=== PATIENT | female | born 1980 | race American Indian/Alaskan Native ===

== ENCOUNTER 2018-04-28 02:59 | Inpatient (IN) | payer SELFPAY ==
[2018-04-28] MEDS ORDERED: ASPIRIN PO ONE (03:28)
[2018-04-28 03:56] LABS: Basophils # (Auto) 0.1 K/mm3 (0.0-0.1); Basophils % (Auto) 1.2 % (0.0-1.8); Eosinophils # (Auto) 0.1 K/mm3 (0.0-0.4); Eosinophils % (Auto) 0.9 % (0.0-4.3); Hematocrit 39.6 % (30.3-42.9); Hemoglobin 13.7 gm/dl (10.1-14.3); Lymphocytes # (Auto) 2.9 K/mm3 (1.2-5.4); Lymphocytes % (Auto) 31.6 % (13.4-35.0); Mean Corpuscular HGB Conc 35 % (30-34); Mean Corpuscular Volume 91 fl (79-97); Monocytes # (Auto) 0.5 K/mm3 (0.0-0.8); Monocytes % (Auto) 5.2 % (0.0-7.3); Platelet Count 310 K/mm3 (140-440); Red Blood Count 4.36 M/mm3 (3.65-5.03); Red Cell Distribution Width 12.9 % (13.2-15.2)
[2018-04-28 04:42] LABS: BUN/Creatinine Ratio 8; Blood Urea Nitrogen 6 mg/dL (7-17); Calcium 9.6 mg/dL (8.4-10.2); Hemolysis Index 15
[2018-04-28] MEDS ORDERED: NITRO-BID 2% TP ONE ×2 (04:59→05:04)
[2018-04-28] MEDS ORDERED: SUBLIMAZE IV ONE (04:59)
[2018-04-28] MEDS ORDERED: ZOFRAN IV ONE (04:59)
--- NOTE | 2018-04-28 05:01 | Emergency Department Report ---
HPI - General Chief Complaint: Chest Pain Time Seen by Provider: 04/28/18 04:51 - HPI HPI: Room 2 The patient is a 37-year-old female presenting with a chief complaint of chest pain. The patient states she was at work standing at 22:30 was developed sub sternal chest heaviness radiating to the left upper extremity. Patient states she developed shortness of breath and nausea without vomiting. She states she began to feel clammy. Patient states the pain has been intermittent. The patient states she was administered nitroglycerin by EMS and her chest pain improved. The patient states she's never had a stress test or cardiac catheterization Location: Chest, see above Duration: Intermittent since 22:30 Quality: Heaviness Severity: Moderate Modifying factors: [see above] Context: [see above] Mode of transportation: [not driving] ED Past Medical Hx - Past Medical History Previous Medical History?: No - Surgical History Past Surgical History?: No - Family History Family history: no significant - Social History Smoking Status: Never Smoker Substance Use Type: None (denies illicit drug use), Alcohol (occasional) ED Review of Systems ROS: Stated complaint: CHEST PAIN Other details as noted in HPI Constitutional: diaphoresis Eyes: denies: eye pain ENT: denies: throat pain Respiratory: shortness of breath Cardiovascular: chest pain Endocrine: no symptoms reported Gastrointestinal: nausea. denies: vomiting Genitourinary: denies: dysuria Musculoskeletal: denies: back pain Neurological: headache (after nitroglycerin) Physical Exam - Physical Exam Vital Signs: Vital Signs 04/28/18 03:20 Temperature 98.4 F Pulse Rate 74 Respiratory 18 Rate Blood Pressure 136/76 O2 Sat by Pulse 98 Oximetry Physical Exam: GENERAL: The patient is well-developed well-nourished female sitting on stretcher not appearing to be in acute distress. [] HEENT: Normocephalic. Atraumatic. Extraocular motions are intact. Patient has moist mucous membranes. NECK: Supple. Trachea midline CHEST/LUNGS: Clear to auscultation. There is no respiratory distress noted. HEART/CARDIOVASCULAR: Regular. There is no tachycardia. There is no gallop rub or murmur. ABDOMEN: Abdomen is soft, nontender. Patient has normal bowel sounds. There is no abdominal distention. SKIN: There is no rash. There is no edema. There is no diaphoresis. NEURO: The patient is awake, alert, and oriented. The patient is cooperative. The patient has normal speech MUSCULOSKELETAL: There is no evidence of acute injury. ED Course Vital Signs 04/28/18 03:20 Temperature 98.4 F Pulse Rate 74 Respiratory 18 Rate Blood Pressure 136/76 O2 Sat by Pulse 98 Oximetry ED Medical Decision Making - Lab Data Result diagrams: 04/28/18 03:30 04/28/18 03:30 Laboratory Tests 04/28/18 04/28/18 03:30 03:30 WBC 9.2 RBC 4.36 Hgb 13.7 Hct 39.6 MCV 91 MCH 31 MCHC 35 H RDW 12.9 L Plt Count 310 Lymph % (Auto) 31.6 Dillon % (Auto) 5.2 Eos % (Auto) 0.9 Baso % (Auto) 1.2 Lymph # 2.9 Dillon # 0.5 Eos # 0.1 Baso # 0.1 Seg Neutrophils % 61.1 Seg Neutrophils # 5.6 Sodium 146 H Potassium 4.0 Chloride 107.3 H Carbon Dioxide 23 Anion Gap 20 BUN 6 L Creatinine 0.8 Estimated GFR > 60 BUN/Creatinine Ratio 8 Glucose 104 H Calcium 9.6 Troponin T < 0.010 - EKG Data -: EKG Interpreted by Me EKG shows normal: sinus rhythm Rate: normal - EKG Data When compared to previous EKG there are: previous EKG unavailable Interpretation: other (no ischemic changes seen) - Radiology Data Radiology results: image reviewed (chest x-ray) interpreted by me: Chest x-ray-no focal infiltrate, no pneumothorax - Differential Diagnosis ACS, pericarditis, GERD Critical care attestation.: If time is entered above; I have spent that time in minutes in the direct care of this critically ill patient, excluding procedure time. ED Disposition Clinical Impression: Chest pain Disposition: DC-01 TO HOME OR SELFCARE Is pt being admited?: Yes Does the pt Need Aspirin: Yes Condition: Fair Instructions: Chest Pain (ED) Time of Disposition: 05:11 (hospitalist paged (Dr. Dara Carrion))
[2018-04-28] MEDS ORDERED: ZOFRAN ONE (05:04)
[2018-04-28] MEDS ORDERED: SUBLIMAZE ONE (05:04)
--- NOTE | 2018-04-28 05:17 | XRay Report ---
FINAL REPORT PROCEDURE: XR CHEST 1V AP TECHNIQUE: Chest radiograph anteroposterior view. CPT 25976 HISTORY: chest pain COMPARISON: No prior studies are available for comparison. FINDINGS: Heart: Normal. Mediastinum/Vessels: Normal. Lungs/Pleural space: Normal. Bony thorax: No acute osseous abnormality. Life support devices: None. IMPRESSION: No acute cardiopulmonary abnormality.
[2018-04-28] MEDS ORDERED: TYLENOL PO PRN (05:29)
[2018-04-28] MEDS ORDERED: MORPHINE IV PRN (05:29)
[2018-04-28] MEDS ORDERED: SODIUM CHLORIDE FLUSH SYRINGE 10 ML IV PRN (05:29)
[2018-04-28] MEDS ORDERED: ZOFRAN IV PRN (05:29)
[2018-04-28] MEDS ORDERED: APRESOLINE IV PRN (05:29)
--- NOTE | 2018-04-28 05:35 | History and Physical Report ---
History of Present Illness Date of examination: 04/28/18 History of present illness: 37-year-old woman with no medical problems comes emergency room with complaints of chest pain that started while she was at work. Pain is in the left substernal area which she describes as sharp, someone sitting on her chest, constant, intensity 7/10, radiating to the left arm, relieved with nitroglycerin. Admits to nausea, shortness of breath, palpitation and feeling clammy. She seen a physician in February and her blood pressure was elevated at that time, she is not on any antihypertensive Review of systems Constitutional: no weight loss, chills, fever Ears, eyes, nose, mouth and throat: no nasal congestion, no nasal discharge, no sinus pressure, no vision change, no red eye. Neck: No neck pain or rigidity. Cardiovascular: +palpitations Respiratory: no cough, +shortness of breath Gastrointestinal: no hematochezia, abdominal pain Genitourinary : no frequency , no hematuria Musculoskeletal: no joint swelling or muscle ache Integumentary: no rash, no pruritis Neurological: no parathesias, no focal weakness Endocrine: no cold or heat intolerance, no polyuria or polydipsia Hematologic/Lymphatic: no easy bruising, no easy bleeding, no gland swelling Allergic/Immunologic: no urticaria, no angioedema. PAST MEDICAL HISTORY: None PAST SURGICAL HISTORY: None SOCIAL HISTORY: Denies alcohol, drugs, tobacco FAMILY HISTORY: Hypertension Medications and Allergies Allergies Allergy/AdvReac Type Severity Reaction Status Date / Time No Known Allergies Allergy Verified 04/28/18 03:28 Exam - Physical Exam Narrative exam: General Apperance: The patient lying in bed, breathing comfortable HEENT: Normocephalic, atraumatic. Pupils equally round and reactive to light, EOMI, no sclericterus or JVD or thyromegaly or nodule. , no carotid bruit, mucous membranes moist, no exudate or erythema Heart: S1-S2, regular is rhythm Lungs: Clear to auscultation bilaterally, breathing comfortable Abdomen: Positive bowel sounds, soft, nontender, nondistended, no organomegaly Extremities: No edema cyanosis clubbing Skin: no rash, nodule, warm and dry Neuro: cranial nerves 2-12 intact, speech is fluent, motor/sensory intact - Constitutional Vitals: Temp Pulse Resp BP Pulse Ox 98.4 F 64 13 144/80 98 04/28/18 03:20 04/28/18 05:15 04/28/18 05:15 04/28/18 05:15 04/28/18 03:20 Results - Labs CBC & Chem 7: 04/28/18 03:30 04/28/18 03:30 Labs: Abnormal lab results 04/28/18 04/28/18 Range/Units 03:30 03:30 MCHC 35 H (30-34) % RDW 12.9 L (13.2-15.2) % Sodium 146 H (137-145) mmol/L Chloride 107.3 H (98-107) mmol/L BUN 6 L (7-17) mg/dL Glucose 104 H (65-100) mg/dL - Imaging and Cardiology EKG: image reviewed Chest x-ray: report reviewed Assessment and Plan Assessment Chest pain, rule out ACS Elevated blood pressure Hypernatremia Plan Admit to medicine Check cardiac enzymes, obtain a stress test IV hydralazine and the blood pressure control Start aspirin, IV morphine, IV fluid DVT prophylaxis
[2018-04-28] MEDS ORDERED: NACL 0.45% 1000 ML 1,000 ML IV SCH (06:00)
[2018-04-28 06:17] LABS: Creatine Kinase MB 2.2 ng/mL (0.0-4.0)
[2018-04-28] MEDS ORDERED: ASPIRIN PO SCH (10:00)
[2018-04-28] MEDS ORDERED: SODIUM CHLORIDE FLUSH SYRINGE 10 ML IV SCH (10:00)
[2018-04-28] MEDS ORDERED: LOVENOX SUB-Q SCH ×2 (10:00)
--- NOTE | 2018-04-28 10:28 | Discharge Summary ---
Providers - Providers Date of Admission: 04/28/18 05:30 Date of discharge: 04/28/18 Attending physician: TAINA MARION Primary care physician: YUNI WOLFF Hospitalization Reason for admission: cp Condition: Fair Hospital course: 37-year-old woman with no medical problems comes emergency room with complaints of chest pain that started while she was at work. Pain was in the left substernal area which she described as sharp, someone sitting on her chest, constant, intensity 7/10, radiating to the left arm, relieved with nitroglycerin. Admitted to nausea, shortness of breath, palpitation and feeling clammy. She saw a physician in February and her blood pressure was elevated at that time, she is not on any antihypertensive. The patient was admitted with diagnosis of chest pain. Blood pressure was normotensive during hospitalization. The patient underwent stress thallium and found to be negative will be discharged home. EKG and cardiac isoenzymes were found to be within normal limits. Dedicated discharge time 35 minutes. Disposition: TO HOME OR SELFCARE Time spent for discharge: 35 - Discharge Diagnoses (1) Chest pain Status: Acute Core Measure Documentation - Palliative Care Palliative Care/ Comfort Measures: Not Applicable - Core Measures Any of the following diagnoses?: none Exam - Constitutional Vitals: Temp Pulse Resp BP Pulse Ox 98.4 F 80 18 129/76 96 04/28/18 03:20 04/28/18 07:46 04/28/18 08:21 04/28/18 08:18 04/28/18 07:41 General appearance: Present: no acute distress, well-nourished - EENT Eyes: Present: PERRL ENT: hearing intact, clear oral mucosa - Neck Neck: Present: supple, normal ROM - Respiratory Respiratory effort: normal Respiratory: bilateral: CTA - Cardiovascular Heart Sounds: Present: S1 & S2. Absent: rub, click - Extremities Extremities: pulses symmetrical, No edema Peripheral Pulses: within normal limits - Abdominal General gastrointestinal: Present: soft, non-tender, non-distended, normal bowel sounds Female genitourinary: Present: normal - Integumentary Integumentary: Present: clear, warm, dry - Musculoskeletal Musculoskeletal: gait normal, strength equal bilaterally - Psychiatric Psychiatric: appropriate mood/affect, intact judgment & insight - Neurologic Neurologic: CNII-XII intact, moves all extremities Plan Activity: no restrictions Weight Bearing Status: Full Weight Bearing Diet: regular Follow up with: YUNI WOLFF MD [Primary Care Provider] - 7 Days Prescriptions: Gabapentin [Neurontin] 800 mg PO BID #60 tablet Pantoprazole [Protonix] 40 mg PO QDAY #30 tablet
[2018-04-28] MEDS ORDERED: AFLURIA QUAD 2018-2019 SYRINGE IM ONE (12:00)
[2018-04-28 12:16] VITALS: BP 118/56
== END 2018-04-28 14:07 | disposition home or self-care (01) | DRG 313 ==
LOC: ED 02:59 → 4A 05:30
PROVIDERS: ADMIT Internal Medicine; ATTEND Hospitalist
DX: R07.9 Chest pain, unspecified (principal); E87.0 Hyperosmolality and hypernatremia; R03.0 Elevated blood-pressure reading, without diagnosis of hypertension; Z82.49 Family history of ischemic heart disease and other diseases of the circulatory system; Z72.89 Other problems related to lifestyle
CPT/HCPCS: 36415; 71045; 80048; 82550; 82553; 84484; 85025; 90686; 93005; 93010; 93017; 96374; 96375; G0378; J1650; J2405; J3010